=== PATIENT | male | born 1950 | race Caucasian/White ===

== ENCOUNTER 2021-08-01 16:10 | Observation (INO) | payer MEDICARE ==
[2021-08-01 18:17] VITALS: BMI 31.4
[2021-08-01] MEDS ORDERED: Ondansetron ODT 4 MG TAB PO PRN (19:37)
[2021-08-01] MEDS ORDERED: Ondansetron PF 4 MG/2 ML Vial IVP PRN (19:37)
[2021-08-01] MEDS ORDERED: HYDROcodone/Acetaminophen 10/325 mg Tablet PO PRN (19:43)
[2021-08-01] MEDS ORDERED: Diltiazem 125 MG in Sodium Chloride 0.9% 100 ML IVPB SCH (19:45)
[2021-08-01 20:19] LABS: Magnesium 1.9 mg/dL (1.6-2.6)
[2021-08-01 20:21] LABS: Troponin I Less than 0.010 ng/mL (< 0.028)
[2021-08-01] MEDS: oxyCODONE ER 10 MG TAB PO SCH (20:29)
[2021-08-01] MEDS: Metoprolol Tartrate 25 MG TAB PO SCH (20:29)
[2021-08-01] MEDS ORDERED: Rivaroxaban 10 MG TAB PO SCH (20:30)
[2021-08-01 21:34] LABS: SARS-CoV-2 NAA Rapid Test Not Detected (NotDetected)
[2021-08-01 23:26] LABS: Troponin I Less than 0.010 ng/mL (< 0.028)
[2021-08-02 05:16] LABS: #Basophils 0.1 10x3/uL (0.0-0.2); #Eosinphils 0.1 10x3/uL (0.0-0.5); #Monocytes 0.7 10x3/uL (0.0-1.1); %Basophils 0.8 % (0.0-2.0); %Eosinophils 1.5 % (0.0-6.0); %Lymphocytes 33.7 % (18.0-47.0); %Monocytes 9.2 % (0.0-10.0); %Neutrophils 54.4 % (40.0-75.0); Hemoglobin 12.1 g/dL (13.5-17.5); Mean Corpuscular HGB CONC 32.8 g/dL (32.0-36.0); Mean Corpuscular Hemoglobin 32.7 pg (27.0-33.0); Mean Corpuscular Volume 99.7 fl (81.2-95.1); Mean Platelet Volume 9.8 fl (7.4-10.4); Platelet Count 202 10x3/uL (150-450); RBC Distribution Width 14.1 % (11.5-14.5); White Blood Cell (WBC) Count 7.4 10x3/uL (3.5-10.5)
[2021-08-02 05:34] LABS: Anion Gap 11 mmol/L (10-20); BUN (Urea Nitrogen) 10 mg/dL (8.4-25.7); Calc. Creatinine Clearance 106 mL/min (70-130); Calcium 8.6 mg/dL (7.8-10.44); Carbon Dioxide 26 mmol/L (23-31); Chloride 107 mmol/L (98-107); Glucose 88 mg/dL (80-115); Potassium 4.3 mmol/L (3.5-5.1); Sodium 140 mmol/L (136-145)
[2021-08-02] MEDS ORDERED: Rosuvastatin 10 MG TAB PO SCH ×2 (09:00→21:00)
[2021-08-02] MEDS: Metoprolol Tartrate 25 MG TAB PO SCH (09:32)
[2021-08-02] MEDS: oxyCODONE ER 10 MG TAB PO SCH (09:32)
[2021-08-02 12:07] VITALS: BP 130/68; TEMP 97.5
[2021-08-02] MEDS ORDERED: Rivaroxaban 10 MG TAB PO SCH (17:00)
[2021-08-02] MEDS ORDERED: Prevnar 13-Val Conj/PF 0.5 ML SYRINGE IM ONE (19:49)
[2021-08-02] MEDS ORDERED: FLU VACC QS2021-22(65YR UP)/PF 240 MCG/0.7 ML SYRINGE IM ONE (19:49)
[2021-08-02] MEDS ORDERED: Metoprolol Tartrate 50 MG TAB PO SCH (21:00)
== END 2021-08-02 12:07 | disposition home or self-care (01) ==
LOC: CSHTELE 16:10 → INTOOBSV 16:10
PROVIDERS: ADMIT Internal Medicine; ATTEND Physician Assistant Medical
DX: I48.21 Permanent atrial fibrillation (principal); G89.29 Other chronic pain; I25.10 Atherosclerotic heart disease of native coronary artery without angina pectoris; M54.50 Low back pain, unspecified; Z79.899 Other long term (current) drug therapy; E78.5 Hyperlipidemia, unspecified; Z79.01 Long term (current) use of anticoagulants; Z87.891 Personal history of nicotine dependence; Z20.822 Contact with and (suspected) exposure to COVID-19
CPT/HCPCS: 80048; 83735; 84484; 85025; 93005; U0002; 36415; 93010; 96374; G0378; J3490